=== PATIENT | male | born 1985 | race Hispanic/Latino ===

== ENCOUNTER 2024-11-11 09:12 | Emergency (ER) | payer OTHER ==
[~2024-11-11] VITALS: Ht 182.9 cm; Wt 104.3 kg
[2024-11-11 09:51] LABS: RAPID GROUP A STREP negative (NEGATIVE)
[2024-11-11 10:02] LABS: INFLUENZA TYPE A Negative For Type A (NEGATIVE); INFLUENZA TYPE B Negative For Type B (NEGATIVE)
[2024-11-11 10:29] LABS: SARS-CoV-2, RNA, NAAT POSITIVE SARS CoV-2 (NEGATIVE)
[2024-11-11] MEDS: acetaMINOPHEN 500 MG TABLET PO ONE (10:34)
[2024-11-11] MEDS ORDERED: FLUT16H NS (10:51)
[2024-11-11] MEDS ORDERED: LORA-726 PO (10:51)
--- NOTE | 2024-11-11 10:51 | ERN ---
General Chief Complaint: Flu Symptoms Stated Complaint: FLU SYMPTOMS Time Seen by MD: 09:15 Source: patient History of Present Illness Initial Comments PATIENT IS A 39-YEAR-OLD MALE COMING IN TO BE EVALUATED FOR FLU-LIKE SYMPTOMS. PATIENT STATES HE WAS HAD SORE THROAT ACHY BONES FOR A COUPLE OF DAYS. ALSO STATES HE FEELS CHILLS Allergies: Coded Allergies: No Known Drug Allergies (Unverified Allergy, Unknown, 11/11/24) Past Medical History Past Medical History: No Pertinent History Past Surgical History: Cholecystectomy ROS Dictation CONSTITUTIONAL: CHILLS, NO FEVER, NO WEAKNESS, NO DIAPHORESIS, NO MALAISE. HEAD/FACE: NO SIGNS OF TRAUMA. EENT: NO EYE PAIN, NO BLURRED VISION, NO TEARING, NO DOUBLE VISION, NO EAR PAIN, NO EAR DISCHARGE, NO NOSE PAIN, NO NASAL CONGESTION, NO THROAT PAIN, NO THROAT SWELLING, NO MOUTH PAIN. RESPIRATORY: NO COUGH, NO ORTHOPNEA, NO SOB, NO STRIDOR, NO WHEEZING. CARDIOVASCULAR: NO CHEST PAIN, NO EDEMA, NO PALPITATIONS, NO SYNCOPE. GASTROINTESTINAL/ABDOMINAL: NO ABDOMINAL PAIN, NO CONSTIPATION, NO DIARRHEA, NO NAUSEA, NO VOMITING. GENITOURINARY: NO ABNORMAL DISCHARGE, NO DYSURIA, NO FREQUENT URINATION, NO HEMATURIA. NO COMPLAINTS OF PAIN IN THE GENITALS. MUSCULOSKELETAL: NO BACK PAIN, NO GOUT, NO JOINT PAIN, NO JOINT SWELLING, NO MUSCLE PAIN, NO MUSCLE STIFFNESS, NO NECK PAIN. INTEGUMENTARY: NO CHANGE IN COLOR, NO CHANGE IN HAIR/NAILS, NO DRYNESS, NO LESION, NO LUMPS, NO RASH. NEUROLOGICAL/PSYCH: NO ANXIETY, NOT DEPRESSED, NO EMOTIONAL PROBLEM, NO HEADACHE, NO NUMBNESS, NO PRE-EXISTING DEFICIT, NO HISTORY OF SEIZURES, NO TREMORS, NO WEAKNESS. HEMATOLOGIC/LYMPHATIC: NOT ANEMIC, NO HISTORY OF BLOOD CLOTS, NO APPARENT BLEEDING, NO BRUISING, GLANDS NOT SWOLLEN. ALL SYSTEMS NEGATIVE, EXCEPT NOTED. Physical Exam Physical Exam Dictation VITAL SIGNS: REVIEWED. GENERAL APPEARANCE: ALERT, ORIENTED X3, NO ACUTE DISTRESS, OBESE. HEAD AND FACE: NON-TRAUMATIC. EYES: PERRL, PINK CONJUNCTIVAS, EYELID NO TRAUMA, ANTERIOR CHAMBER CLEAR. EARS: PINNAS INTACT AND NO SIGNS OF TRAUMA OR ERYTHEMA. EAR CANALS CLEAR AND NO DISCHARGE. TMS NO ERYTHEMA. NOSE: NO DISCHARGE, NO BLEEDING. OROPHARYNX: MOUTH NORMAL, TEETH NO CARIES, TONGUE PINK. PHARYNX CLEAR, NO ERYTHEMA. TONSILS NO EXUDATES, NO ABSCESSES NOTED. MUCOUS MEMBRANE MOIST. NECK: SUPPLE, NON-TENDER, NO THYROMEGALY, NO MASSES, NO JVD, NO BRUITS. BREAST: DEFERRED. CHEST: NO TENDERNESS, NO CREPITUS, NO PARADOXICAL MOVEMENT, NO RETRACTIONS. LUNGS: CLEAR, WELL-VENTILATED, SYMMETRIC, NO RALES, NO WHEEZING, NO RHONCHI, NO STRIDOR, GOOD BREATH SOUNDS BILATERALLY. HEART: REGULAR RATE, REGULAR RHYTHM, NO MURMUR, NO GALLOPS. VASCULAR: NO PERIPHERAL EDEMA. ABDOMEN: SOFT, POSITIVE BOWEL SOUNDS, NONDISTENDED, NO GUARDING, NONTENDER, NO REBOUND, NO MASSES NO HEPATOMEGALY, NO SPLENOMEGALY, NO DELUNA'S SIGN, NO HERNIAS. RECTAL: DEFERRED. GENITAL: DEFERRED. NEUROLOGICAL: NORMAL SPEECH, GROSS MOTOR FUNCTION INTACT, GROSS SENSORY FUNCTION INTACT. MUSCULOSKELETAL: NECK NONTENDER, FULL RANGE OF MOTION, BACK NONTENDER, FULL RANGE OF MOTION. EXTREMITIES: NONTENDER, FULL RANGE OF MOTION. SKIN: COLOR PINK, DRY, NO TURGOR, NO RASH, NO LACERATIONS, NO ABRASIONS, NO CONTUSIONS. LYMPHATICS: DEFERRED. Results Laboratory and Microbiology Lab and Micro Result Laboratory Tests Test 11/11/24 09:28 Influenza Type A Antigen Negative For Type A Influenza Type B Antigen Negative For Type B SARS-CoV-2, RNA, NAAT POSITIVE SARS CoV-2 Group A Streptococcus Rapid negative (NEGATIVE) Labs Reviewed?: Yes MDM MDM: DIFFERENTIAL DIAGNOSIS: COVID, FLU, STREP RATIONALE: TESTS CONSIDERED AND ORDERED SECONDARY TO SHARED DECISION MAKING INCLUDE: PREVIOUS OUTSIDE RECORDS REVIEWED: OLD ER VISITS. PATIENT IS A 39-YEAR-OLD MALE COMING IN TO BE EVALUATED FOR FLU-LIKE SYMPTOMS. LABORATORY WORKUP POSITIVE FOR COVID. PATIENT RECEIVED IV FLUIDS SOME STEROIDS PATIENT WILL BE DISCHARGED IN STABLE CONDITION WITH A DIAGNOSIS OF COVID. I DID ADVISED HIM APPROPRIATE FOLLOW UP WITH PCP IN 1-2 DAYS. PATIENT WILL ALSO BE DISCHARGED WITH A SYMPTOMATIC MEDICATION. ED Course Orders Procedure Category Date Status Time Covid Rna Naat LAB 11/11/24 Complete 09:20 Influenza Type A & B, LAB 11/11/24 Complete Rapid 09:20 Rapid (Group A Strep) LAB 11/11/24 Complete 09:20 Acetaminophen 500mg PHA 4/9/25 Complete Tab (Tylenol 500mg T 10:30 Current Medications Medications (Trade) Dose Ordered Sig/Adriana Route PRN Reason Start Time Stop Time Status Last Admin Dose Admin Acetaminophen (TYLenol 500MG TAB) 500 mg ONCE ONCE PO 11/11/24 10:30 11/11/24 10:31 DC 11/11/24 10:34 Vital Signs Date Time Temp Pulse Resp B/P (MAP) Pulse Ox O2 Delivery O2 Flow Rate FiO2 11/11/24 09:45 97.9 56 18 109/62 100 Room Air* 0 21 11/11/24 09:17 99.0 60 16 126/66 97 Room Air 0 DX & DISP Disposition: Discharge Departure Impression: Primary Impression: COVID-19 Condition: Stable Scripts Fluticasone Propionate (Flonase Nasal [place]) 50 Mcg/Actuation [place] 2 SPRAY NS DAILY, #16 GM 0 Refills Prov: MARIA FERNANDA GRIMALDO MD 11/11/24 Loratadine/Pseudoephedrine (Loratadine-D 12 Hour Tablet) 5 Mg-120 Mg Tab.er.12h 1 TAB PO BID PRN for COUGH for 10 Days, #20 TAB 0 Refills Prov: MARIA FERNANDA GRIMALDO MD 11/11/24 Additional Instructions: FOLLOW-UP WITH PRIMARY CARE PROVIDER IN 1 TO 2 DAYS. TAKE MEDICATIONS DIRECTED HERE IN THE EMERGENCY ROOM. OKAY TO CONTINUE HOME MEDICATIONS UNLESS OTHERWISE DISCUSSED DURING YOUR VISIT IN THE EMERGENCY ROOM TODAY. RETURN TO YOUR NEAREST EMERGENCY ROOM IF SYMPTOMS WORSEN OR IF THERE IS NO IMPROVEMENT. CALL 911 IF YOU NEED IMMEDIATE ASSISTANCE. TAKE TYLENOL [id number] NEEDED AND IF NO CONTRAINDICATIONS ARE PRESENT. INCREASE ORAL HYDRATION. A WOUND CULTURE OR URINE CULTURE WAS ORDERED HERE IN THE EMERGENCY ROOM DEPARTMENT PLEASE FOLLOW-UP WITH PRIMARY CARE PROVIDER AND ADVISE THEM TO GET REPEAT PORTS FROM OUR FACILITY. IF YOU HAD ANY SHRUTHI WRAP/SPLINTS THAT WERE APPLIED HERE, PLEASE DO NOT REMOVE THEM UNTIL YOU SEE YOUR PRIMARY CARE OR SPECIALTY. REFERRALS: Referrals: SELF,REFERRAL (PCP) NICOLE LORD MD Time of Disposition: 10:50 MARIA FERNANDA GRIMALDO MD Nov 11, 2024 10:51
[2024-11-11] MEDS: 0.9%NACL 1000ML 1,000 ML IV ONE (11:03)
[2024-11-11] MEDS: dexaMETHasone SOD PHOSPHATE 4 MG/ML 1ML VIAL IV ONE (11:05)
--- NOTE | 2024-11-11 12:02 | NUR ---
PT STABLE DISTRESS, VITALS WNL NO /C/O PAIN NOW, PT MEDICATED FOR PAIN PRIOR TO LEAVING, GIVEN INSTRUCTIONS FOR PAIN VERBALIZED UNDERSTANDING. IV REMOVED CATHETER INTACT. PT DRIVEN HOME BY .
[2024-11-11 12:08] VITALS: BP 133/48; PULSE 53; RESP 18; TEMP 98.8; O2SAT 99
[2024-11-11] MEDS: ketOROlac 15MG/ML VIAL (15MG/ML) IM ONE (12:16)
== END 2024-11-11 12:00 | disposition home or self-care (01) ==
LOC: EDH 09:12
DX: U07.1 COVID-19 (principal); Z90.49 Acquired absence of other specified parts of digestive tract
CPT/HCPCS: 99284; 96374; 87635; 96361; 87880; 87804 ×2; 96372; J1100; J1885; J7030

== ENCOUNTER 2025-04-25 17:45 | Emergency (ER) | payer OTHER ==
[~2025-04-25] VITALS: Ht 182.9 cm; Wt 106.6 kg
[~2025-04-25 17:45] MED LIST: FLUT16H NS; LORA-726 PO
[2025-04-25 17:54] VITALS: BP 144/71; PULSE 82; RESP 16; TEMP 98.2; O2SAT 97
[2025-04-25 18:10] LABS: RAPID GROUP A STREP negative (NEGATIVE)
--- NOTE | 2025-04-25 18:18 | ERN ---
ED Note History of Present Illness Stated Complaint: COUGH, SORE THROAT, ABD PAIN Chief Complaint: Cough Time Seen by MD: 17:53 Time Seen by Midlevel: 17:53 Dictation: The patient is a 39-year-old male with no past medical history who presents to the emergency department with complaints of sore throat, generalized abdominal pain onset yesterday. Patient also reports that today he started with a nonproductive cough. Patient otherwise denies fevers, nausea or vomiting, diarrhea. Reports his son has the same symptoms at home. Allergies: Coded Allergies: No Known Drug Allergies (Unverified Allergy, Unknown, 11/11/24) Home Meds Active Scripts Fluticasone Propionate (Flonase Nasal [place]) 50 Mcg/Actuation [place], 2 SPRAY NS DAILY, #16 GM 0 Refills Prov:MARIA FERNANDA GRIMALDO MD 11/11/24 Loratadine/Pseudoephedrine (Loratadine-D 12 Hour Tablet) 5 Mg-120 Mg Tab.er.12h, 1 TAB PO BID PRN for COUGH for 10 Days, #20 TAB 0 Refills Prov:MARIA FERNANDA GRIMALDO MD 11/11/24 Past Medical History Past Medical History: No Pertinent History Surgical History: Cholecystectomy RN Note Reviewed/Agreed w/PFSH: Yes Review of System Dictation Constitutional: Negative for fever,chills, and weight loss Eyes: Negative for injury, pain,redness, and discharge ENT: Negative for injury, or swelling positive for sore throat Cardiovascular: Negative for chest pain, palpitations, and edema Respiratory: Negative for shortness of breath, and wheezing, positive for cough Abdomen/GI: Negative for nausea, vomiting, diarrhea, and constipation positive for abdominal pain Back: Negative for injury and pain : Negative for injury, bleeding and discharge MS/Extremity: Negative for injury and deformity Skin: Negative for rash, and discoloration Neuro: Negative for headache, weakness, numbness, tingling, and seizure Psych: Negative for suicide ideation, homicidal ideation, and hallucinations Initial Vital Sign VS Vital Signs Date Time Temp Pulse Resp B/P (MAP) Pulse Ox O2 Delivery O2 Flow Rate FiO2 04/25/25 17:46 98.2 82 16 144/71 97 Room Air 04/25/25 17:54 0 21 Physical Exam Dictation Vital Signs reviewed General Appearance: Alert, oriented x 3, no acute distress, well developed, nourished. Head and Face: non-traumatic. Eyes: PERRL, pink conjunctivas, eyelid no trauma, anterior chamber with arcus senilis. Ears: Pinnas intact and no signs of trauma or erythema ear canals clear and no discharge TM no erythema Nose: No discharge, no bleeding. Oropharynx: Mouth normal, tongue pink. pharynx clear,no erythema, tonsils no exudates, no abscesses noted, mucous membrane moist Neck: Supple, non-tender, no thyromegaly, no masses, no JVD, no bruits Breast:Deferred Chest:No tenderness, no crepitus, no paradoxical movement, no retractions Lungs:Clear, well-ventilated, symmetric, no rales, no wheezing, no rhonchi, no stridor, good breath sounds bilaterally Heart: Regular rate, regular rhythm, no murmur, no gallops Vascular: no peripheral edema, Abdomen: Soft, positive bowel sounds, nondistended, no guarding, nontender, no rebound, no masses no hepatomegaly, no splenomegaly, no Leung's sign, no hernias. Rectal: Deferred Genital: Deferred Neurological: Normal speech, motor function intact, sensory function intact Musculoskeletal: Neck nontender, full range of motion, back nontender, full range of motion, Extremities: nontender, full range of motion Skin: Color pink, dry, no turgor, no rash, no lacerations, no abrasions, no contusions. Lymphatic: Deferred Results (Laboratory/Radiology) Laboratory/Radiology Laboratory Tests Test 04/25/25 17:50 Influenza Type A Antigen Negative For Type A Influenza Type B Antigen Negative For Type B SARS-CoV-2 Antigen (Rapid) PRESUMPTIVE NEGATIVE Group A Streptococcus Rapid negative (NEGATIVE) Labs Reviewed?: Yes ED Course ED Course Orders Procedure Category Date Status Time Covid19 (Sars Antigen LAB 04/25/25 Complete Rapid) 17:51 Influenza Type A & B, LAB 04/25/25 Complete Rapid 17:51 Rapid (Group A Strep) LAB 04/25/25 Complete 17:51 Guaifenesin-Dm PHA 04/25/25 In Process 200/20mg 10ml 18:30 Acetaminophen 500mg PHA 04/25/25 In Process Tab (Tylenol 500mg T 18:30 Current Medications Medications (Trade) Dose Ordered Sig/Adriana Route PRN Reason Start Time Stop Time Status Last Admin Dose Admin Acetaminophen (TYLenol 500MG TAB) 1,000 mg ONCE ONCE PO 04/25/25 18:30 04/25/25 18:31 04/25/25 18:23 Guaifenesin/ Dextromethorphan (RobiTUSSin DM 200/20MG 10ML) 10 ml ONCE ONCE PO 04/25/25 18:30 04/25/25 18:31 04/25/25 18:23 Vital Signs Date Time Temp Pulse Resp B/P (MAP) Pulse Ox O2 Delivery O2 Flow Rate FiO2 04/25/25 17:54 98.2 82 16 144/71 97 Room Air* 0 21 04/25/25 17:46 98.2 82 16 144/71 97 Room Air Medical Decision Making MDM The patient is a 39-year-old male with no past medical history who presents to the emergency department with complaints of sore throat, generalized abdominal pain onset yesterday. Patient also reports that today he started with a nonproductive cough. Patient otherwise denies fevers, nausea or vomiting, diarrhea. Reports his son has the same symptoms at home. Serology was negative. Patient has symptoms consistent with a an upper respiratory infection. On physical exam patient is in no acute distress, nontoxic appearance, clear lung sounds, nontender abdomen. Stable vital signs. Patient will be discharged to follow up with PCP. Differential diagnosis: Strep throat, COVID-19 infection, pharyngitis, URI Need for hospitalization: Patient does not meet criteria for hospitalization. There are no social concerns with this patient. DX & DISP Disposition: Discharge Departure Impression: Primary Impression: URI (upper respiratory infection) Condition: Stable Additional Instructions: FOLLOW-UP WITH PRIMARY CARE PROVIDER IN 1 TO 2 DAYS. TAKE MEDICATIONS DIRECTED HERE IN THE EMERGENCY ROOM. OKAY TO CONTINUE HOME MEDICATIONS UNLESS OTHERWISE DISCUSSED DURING YOUR VISIT IN THE EMERGENCY ROOM TODAY. RETURN TO Y OUR NEAREST EMERGENCY ROOM IF SYMPTOMS WORSEN OR IF THERE IS NO IMPROVEMENT. CALL 911 IF YOU NEED IMMEDIATE ASSISTANCE. TAKE TYLENOL [id number] NEEDED AND IF NO CONTRAINDICATIONS ARE PRESENT. INCREASE ORAL HYDRATION. A WOUND CULTURE OR URINE CULTURE WAS ORDERED HERE IN THE EMERGENCY ROOM DEPARTMENT PLEASE FOLLOW-UP WITH PRIMARY CARE PROVIDER AND ADVISE THEM TO GET REPEAT PORTS FROM OUR FACILITY. IF YOU HAD ANY SHRUTHI WRAP/SPLINTS THAT WERE APPLIED HERE, PLEASE DO NOT REMOVE THEM UNTIL YOU SEE YOUR PRIMARY CARE OR SPECIALTY. Referrals: SELF,REFERRAL (PCP) Time of Disposition: 18:27 I have reviewed the case, and I agree with, Diagnosis and Plan ALEXANDRO ARGUELLO PL[employer]GER [employer] OPERATOR Apr 25, 2025 18:18
[2025-04-25 18:19] LABS: COVID19 (SARS ANTIGEN RAPID) PRESUMPTIVE NEGATIVE (NEGATIVE); INFLUENZA TYPE A Negative For Type A (NEGATIVE); INFLUENZA TYPE B Negative For Type B (NEGATIVE)
[2025-04-25] MEDS: guaiFENesin-DM 200/20MG 10ML PO ONE (18:23)
== END 2025-04-25 18:33 | disposition home or self-care (01) ==
LOC: EDH 17:45
DX: J06.9 Acute upper respiratory infection, unspecified (principal); Z90.49 Acquired absence of other specified parts of digestive tract; Z20.822 Contact with and (suspected) exposure to COVID-19
CPT/HCPCS: 87426; 87804; 87880; 99283